=== PATIENT | female | born 1950 | race Caucasian/White ===

== ENCOUNTER 2024-04-21 12:38 | Emergency (ER) | payer OTHER ==
[~2024-04-21] VITALS: Ht 165.1 cm; Wt 67.3 kg
--- NOTE | 2024-04-21 13:09 | ED.PDOC ---
Musculoskeletal HPI Comments 73y F who presents to the ED for chief complaint of upper extremity pain. Pt states she went for a walk earlie this AM and states after getting home, she started to have L shoulder pain and states she felt pain when attempting to move her shoulder above her arms. Pt denies any associated fall or injury. Pt in the ED, rates er pain 5/10, constant, exacerbated with movement and no relieving factors. Pt denies any associated radiation of her pain. Pt denies these symptoms in the past. Pt otherwise denies any other symptoms. Chief Complaint: Upper Extremity Time Seen by MD: 13:05 Primary Care Provider: PEARL Castillo Notes: Medications, Allergies Allergies: Coded Allergies: Morphine (Verified Allergy, Unknown, 04/21/24) Information Source: Patient Mode of Arrival: Ambulatory Brought in by: self Extremity Location: Shoulder (L shoulder) Timing: Minutes, Hours Prehospital treatment: None Severity: Moderate Able to Move Extremity: Yes Bear Weight: Limited Pain: Moderate Mechanism: Spontaneous Circumstances: Spontaneous Onset of Symptoms: Spontaneous Symptoms: Pain DVT Risk Factors: NONE Associated signs and symptoms: Shoulder pain Past Medical History PAST MEDICAL HISTORY: High Lipids Surgical History: Appendectomy, , Hysterectomy Surgical History (Other): rotater cuff surgery, bladder surgery, back surgery 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 History Family History Family History: Reviewed,noncontributory to illness, Family hx of HTN Social History Smoker: Non-Smoker Alcohol: Denies ETOH Use Drugs: Denies Drug Use Lives In: Home Constitutional: denies: chills, diaphoresis, fatigue, fever, malaise, sweats, weakness, others EENTM: denies: blurred vision, double vision, ear bleeding, ear discharge, ear drainage, ear pain, ear ringing, eye pain, eye redness, hearing loss, mouth pain, mouth swelling, nasal discharge, nose bleeding, nose congestion, nose pain, photophobia, tearing, throat pain, throat swelling, voice changes, others Respiratory: denies: cough, hemoptysis, orthopnea, SOB at rest, shortness of breath, SOB with excertion, stridor, wheezing, others Cardiovascular: denies: chest pain, dizzy spells, diaphoresis, Dyspnea on exertion, edema, irregular heart beat, left arm pain, lightheadedness, palpitations, PND, syncope, others Gastrointestinal: denies: abdomen distended, abdominal pain, blood streaked bowels, constipated, diarrhea, dysphagia, difficulty swallowing, hematemesis, melena, nausea, poor appetite, poor fluid intake, rectal bleeding, rectal pain, vomiting, others Genitourinary: denies: abnormal vagina bleeding, burning, dyspareunia, dysuria, flank pain, frequency, hematuria, incontinence, pain, , vagina disch arge, urgency, others Neurological: denies: dizziness, fainting, headache, left sided numbness, left sided weakness, numbness, paresthesia, pre-existing deficit, right sided numbness, right sided weakness, seizure, speech problems, tingling, tremors, weakness, others Musculoskeletal: reports: joint pain (L shoulder); denies: back pain, gout, joint swelling, muscle pain, muscle stiffness, neck pain, others Integumetry: denies: bruises, change in color, change in hair/nails, dryness, laceration, lesions, lumps, rash, wounds, others Allergic/Immunocompromised: denies: Difficulty Healing, Frequent Infections, Hives, Itching, others Hematologic/Lymphatic: denies: anemia, blood clots, easy bleeding, easy bruising, swollen glands, others Endocrine: denies: excessive hunger, excessive sweating, excessive thirst, excessive urination, flushing, intolerance to cold, intolerance to heat, unexplained weight gain, unexplained weight loss, others Psychiatric: denies: anxiety, bipolar disorder, depression, hopeless, panic disorder, schizophrenia, sleepless, suicidal, others All Other Systems: Reviewed and Negative Physical Exam General Appearance: No Apparent Distress HEENT: Normal ENT Inspection, Pharynx Normal, TMs Normal Neck: Full Range of Motion, Non-Tender, Normal, Normal Inspection Respiratory: Chest Non-Tender, Lungs Clear, No Accessory Muscle Use, No R espiratory Distress, Normal Breath Sounds Cardiovascular: No Edema, No JVD, No Murmur, No Gallop, Normal Peripheral Pulses, Regular Rate/Rhythm Breast Exam: Deferred Gastrointestinal: No Organomegaly, Non Tender, No Pulsatile Mass, Normal Bowel Sounds, Soft Genitalia: Deferred Pelvic: Deferred Rectal: Deferred Extremities: No calf tenderness, Normal capillary refill, Non-tender, No pedal edema Musculoskeletal : Location: Left Extremity Location: Shoulder Apperance: Limited ROM 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 Was a procedure done?: No Differential Diagnosis EXT Differential Diagnosis: Sprain, Dislocation, DJD, Strain, Arthritis X-Ray, Labs, Meds, VS Vital Signs Date Time Temp Pulse Resp B/P (MAP) Pulse Ox O2 Delivery O2 Flow Rate FiO2 04/21/24 12:57 97.5 75 18 125/64 (84) 96 EXAM: CT CT L SHOULDER WO CONTRAST Impression: 1. No acute osseous abnormality. 2. Minimal degenerative changes of the left shoulder. At this time, the patient was placed in a sling. The patient will follow up with the primary care doctor The patient will return to the emergency department's the condition worsens. The patient was discharged Images Reviewed?: Images reviewed and evaluated by me Time of 1ST Reevaluation: 13:35 Reevaluation 1ST: Unchanged Patient Education/Counseling: Diagnosis, Treatment Family Education/Counseling: No Family Present Departure 1 Departure Time of Disposition: 14:48 Impression: Primary Impression: Left shoulder strain Qualified Codes: S46.912A - Strain of unspecified muscle, fascia and tendon at shoulder and upper arm level, left arm, initial encounter Disposition: HOME / SELF CARE / HOMELESS Condition: Fair Discharged With: Self Critical Care Note Critical Care Time?: No Stability Stability form required: No Heart Score Heart Score: Heart Score Response (Comments) Value History N/A 0 EKG N/A 0 Age N/A 0 Risk Factors N/A 0 Troponin N/A 0 Total 0 I personally scribed for JANIA UREÑA MD ([email or web address]) on 04/21/24 at 13:09. Electronically submitted by Marlon Chaves ([employer]). I personally scribed for JANIA UREÑA MD ([email or web address]) on 04/21/24 at 14:29. Electronically submitted by Marlon Chaves ([employer]). JANIA UREÑA MD Apr 21, 2024 13:09
--- NOTE | 2024-04-21 14:25 | DVH ---
EXAM: CT CT L SHOULDER WO CONTRAST INDICATION: pain with limited motion EXAM DATE: 04/21/2024 01:40 PM COMPARISON: None TECHNIQUE: Multiple axial CT images of the left shoulder were obtained using bone algorithm. Axial an d coronal reformatting was done. Bone and soft tissue windows were reviewed. Radiation Dose Information: CT Dose: CTDI volume is 13.82 mGy. Dose-length product is 287.43 mGy*cm Findings: There is no evidence of an acute fracture, dislocation, blastic, or lytic lesions. Minimal degenerati ve changes of the left shoulder. No radiopaque foreign bodies. No joint effusion or superficial soft tissue abnormalities. Impression: 1. No acute osseous abnormality. 2. Minimal degenerative changes of the left shoulder.
[2024-04-21 15:00] VITALS: BP 145/86; PULSE 61; RESP 16; TEMP 97.8; O2SAT 100
== END 2024-04-21 15:00 | disposition home or self-care (01) ==
LOC: ER 12:38
DX: S46.812A Strain of other muscles, fascia and tendons at shoulder and upper arm level, left arm, initial encounter (principal); E78.5 Hyperlipidemia, unspecified; Z90.49 Acquired absence of other specified parts of digestive tract; Z90.710 Acquired absence of both cervix and uterus; Z88.5 Allergy status to narcotic agent; X58.XXXA Exposure to other specified factors, initial encounter; Y93.89 Activity, other specified; Y92.89 Other specified places as the place of occurrence of the external cause; Y99.8 Other external cause status
CPT/HCPCS: 73200

== ENCOUNTER 2024-06-10 12:40 | Emergency (ER) | payer OTHER ==
[~2024-06-10] VITALS: Ht 162.6 cm; Wt 63.2 kg
[2024-06-10 12:40] VITALS: BP 114/60; PULSE 73; RESP 16; O2SAT 96
--- NOTE | 2024-06-12 13:58 | ECG ---
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
== END 2024-06-10 15:15 | disposition left against medical advice (07) ==
LOC: ER 12:40
DX: R55 Syncope and collapse (principal); Z53.21 Procedure and treatment not carried out due to patient leaving prior to being seen by health care provider